=== PATIENT | male | born 1985 | race African-American/Black ===

== ENCOUNTER 2016-08-11 20:05 | Emergency (ER) | payer SELFPAY ==
[~2016-08-11] VITALS: Ht 193 cm; Wt 84.0 kg
[2016-08-11] MEDS ORDERED: KETOROLAC 60MG/2ML VIAL IM ONE (22:45)
[2016-08-11 23:00] VITALS: BP 126/81
[2016-08-11] MEDS ORDERED: VISCOUS LIDOCAINE 2% 15 ML UDC MM PRN (23:00)
== END 2016-08-11 23:57 | disposition home or self-care (01) ==
LOC: ER 20:05
DX: R51 Headache (principal); F17.200 Nicotine dependence, unspecified, uncomplicated; F12.10 Cannabis abuse, uncomplicated
CPT/HCPCS: 96372; 99283; J1885

== ENCOUNTER 2022-01-23 07:04 | Emergency (ER) | payer MEDICAID, OTHER ==
[~2022-01-23] VITALS: Ht 185.4 cm; Wt 90.0 kg
[2022-01-23 07:05] VITALS: BP 153/79
[2022-01-23] MEDS ORDERED: LORAZEPAM 0.5MG TABLET PO ONE (07:45)
[2022-01-23 09:42] LABS: CLARITY URINE CLEAR (CLEAR); COLOR URINE PALE YELLOW (YELLOW); PROTEIN URINE NEGATIVE (NEGATIVE)
[2022-01-23 09:43] LABS: KETONES URINE 1+ (NEGATIVE); LEUKOCYTE ESTERASE URINE NEGATIVE (NEGATIVE); NITRITE URINE NEGATIVE (NEGATIVE); OCCULT BLOOD URINE NEGATIVE (NEGATIVE); UROBILINOGEN URINE 0.2 E.U./dL (0.2-1.0)
[2022-01-26] MEDS ORDERED: IBUP-2030 MT (11:41)
[2022-01-26] MEDS ORDERED: HYDR-4001 MT (11:41)
[2022-01-27] MEDS ORDERED: RISP1 MT (16:43)
== END 2022-01-23 07:58 | disposition left against medical advice (07) ==
LOC: ER 07:04
DX: Z53.21 Procedure and treatment not carried out due to patient leaving prior to being seen by health care provider (principal)
CPT/HCPCS: 81003; 99283

== ENCOUNTER 2022-01-23 08:37 | Emergency (ER) | payer MEDICAID, OTHER ==
[~2022-01-23] VITALS: Ht 177.8 cm; Wt 91.0 kg
[2022-01-23] MEDS ORDERED: LORAZEPAM 2MG/ML CPJ IV STA (08:41)
[2022-01-23] MEDS ORDERED: SODIUM CHLORIDE 0.9% 1,000 ML IV ONE (08:45)
[2022-01-23 09:32] LABS: BASOPHILS % 0.4 % (0.0-2.0); EOSINOPHILS % 0.2 % (0.0-5.0); HEMATOCRIT. 39.2 % (42.0-52.0); HEMOGLOBIN. 13.3 g/dL (14.0-18.0); LYMPHOCYTES % 8.9 % (20.0-50.0); MEAN CORPUSCULAR VOLUME 97.6 fL (80.0-94.0); MEAN PLATELET VOLUME 8.2 fl (7.4-10.4); MONOCYTES % 8.4 % (2.0-8.0); NEUTROPHILS % 82.1 % (40.0-76.0); PLATELET 189 x1000/uL (130-400); RED BLOOD CELL COUNT 4.01 mill/uL (4.7-6.1); RED CELL DISTRIBUTION WIDTH 13.7 % (11.6-14.6)
[2022-01-23 09:38] LABS: CHLORIDE 100 mEq/L (98-107)
[2022-01-23 09:47] LABS: ETHANOL BLOOD < 10 mg/dL
[2022-01-23] MEDS ORDERED: HALOPERIDOL LACTATE 5MG/ML VIAL IM ONE (10:15)
[2022-01-23 10:28] LABS: CLARITY URINE CLEAR (CLEAR); COLOR URINE PALE YELLOW (YELLOW); KETONES URINE 1+ (NEGATIVE); NITRITE URINE NEGATIVE (NEGATIVE); OCCULT BLOOD URINE NEGATIVE (NEGATIVE); PROTEIN URINE NEGATIVE (NEGATIVE)
[2022-01-23 10:29] LABS: LEUKOCYTE ESTERASE URINE NEGATIVE (NEGATIVE); UROBILINOGEN URINE 0.2 E.U./dL (0.2-1.0)
[2022-01-23 10:43] LABS: *AMPHETAMINES SCREEN URINE PRESUMTIVE POSITIVE (NEGATIVE); *BARBITURATES SCREEN URINE NEGATIVE (NEGATIVE); *BENZODIAZEPINES SCREEN URINE NEGATIVE (NEGATIVE); *COCAINE SCREEN URINE NEGATIVE (NEGATIVE); CANNABINOID URINE SCREEN NEGATIVE (NEGATIVE); METHADONE URINE SCREEN NEGATIVE (NEGATIVE); OPIATES URINE SCREEN NEGATIVE (NEGATIVE); PHENCYCLIDINE URINE SCREEN PRESUMTIVE POSITIVE (NEGATIVE)
[2022-01-23 11:00] VITALS: BP 152/96
[2022-01-26] MEDS ORDERED: HYDR-4001 MT (11:41)
[2022-01-26] MEDS ORDERED: IBUP-2030 MT (11:41)
[2022-01-27] MEDS ORDERED: RISP1 MT (16:43)
== END 2022-01-23 13:23 | disposition home or self-care (01) ==
LOC: ER 08:37
DX: T43.651A Poisoning by methamphetamines accidental (unintentional), initial encounter (principal); R00.2 Palpitations; R45.1 Restlessness and agitation; F15.188 Other stimulant abuse with other stimulant-induced disorder; F16.188 Hallucinogen abuse with other hallucinogen-induced disorder; Y92.512 Supermarket, store or market as the place of occurrence of the external cause
CPT/HCPCS: 36415; 80053; 80305; 80307; 80320; 80329; 81003; 85025; 96361; 96372; 96374; 99284; J1630; J2060; J7030; G0480

== ENCOUNTER 2022-01-27 21:23 | Emergency (ER) | payer MEDICAID ==
[~2022-01-27] VITALS: Ht 193 cm; Wt 84.0 kg
[~2022-01-27 21:23] MED LIST: HYDR-4001 MT; IBUP-2030 MT; RISP1 MT
[2022-01-28 01:49] VITALS: BP 130/66
== END 2022-01-28 01:49 | disposition home or self-care (01) ==
LOC: ER 21:23
DX: S92.002A Unspecified fracture of left calcaneus, initial encounter for closed fracture (principal); S92.001A Unspecified fracture of right calcaneus, initial encounter for closed fracture; W11.XXXA Fall on and from ladder, initial encounter; Y93.89 Activity, other specified; Y92.89 Other specified places as the place of occurrence of the external cause
CPT/HCPCS: 99283

== ENCOUNTER 2022-02-16 17:46 | Emergency (ER) | payer MEDICAID ==
[~2022-02-16] VITALS: Ht 182.9 cm; Wt 100.0 kg
[2022-02-16 17:55] VITALS: BP 162/92
== END 2022-02-16 18:09 | disposition left against medical advice (07) ==
LOC: ER 17:46
DX: Z53.21 Procedure and treatment not carried out due to patient leaving prior to being seen by health care provider (principal)